=== PATIENT | female | born 1945 | race Caucasian/White ===

== ENCOUNTER → 2019-09-23 12:08 | Outpatient (BNVA) | payer MEDICARE, SELFPAY | PROVIDERS: Family Provider Nurse Practitioner Family; PCP Family Medicine; Referring Provider Nurse Practitioner Family; Visit Provider Anesthesiology Pain Medicine | DX: M48.02 Spinal stenosis, cervical region (principal); M50.020 Cervical disc disorder with myelopathy, mid-cervical region, unspecified level; M54.12 Radiculopathy, cervical region; R93.7 Abnormal findings on diagnostic imaging of other parts of musculoskeletal system; F17.210 Nicotine dependence, cigarettes, uncomplicated | CPT/HCPCS: 99204 ==

== ENCOUNTER 2019-10-02 08:28 | Outpatient (CLI) | payer MEDICARE, SELFPAY ==
--- NOTE | 2019-10-02 08:43 | MR_ITS ---
WS: [id number] MRI RIGHT humerus, noncontrast. HISTORY: Pain in RIGHT arm. No trauma. No history of cancer. Multiplanar, multisequence imaging is performed of the RIGHT humerus. Marker is placed along the palpable mass. This palpable area is in the distal third of the humerus. N o marrow signal abnormalities. There is no edema in the muscles or soft tissues. No soft tissue mass. No fluid. No muscle loss. No hematoma. There is a small effusion at the shoulder joint. MR/MR humerus RT wo con* [id number] IMPRESSION: Negative RIGHT humerus. No mass or hematoma.
[2019-10-02 10:48] LABS: Blood Urea Nitrogen 6 mg/dL (8-23)
== END 2019-10-02 08:29 | disposition home or self-care (01) ==
PROVIDERS: Family Provider Nurse Practitioner Family; PCP Family Medicine; Visit Provider Nurse Practitioner Family
DX: M79.81 Nontraumatic hematoma of soft tissue (principal)
CPT/HCPCS: 73218; 82565; 84520

== ENCOUNTER 2019-10-02 08:31 | Outpatient (CLI) | payer MEDICARE, SELFPAY ==
--- NOTE | 2019-10-02 09:30 | MR_ITS ---
WS: [id number] MRI CERVICAL SPINE with and without contrast HISTORY: Abnormal MRI cervical spine 09/02/2019 done at [facility]. COMPARISON: 06/25/2010. Recent MRI is not available from [facility] for review. Slight increase in cervical lordosis. There is some very slight signal abnormality in the cervical co rd at the C6-7 level. No definite enhancement. No atrophy of the cord. Craniocervical junction, C1 and C2 relationship, odontoid process and soft tissues are normal. C2-C3: Shallow central disc protrusion. No stenosis. C3-C4: Mild annular disc bulging and a central disc protrusion without stenosis. C4-C5: Mild annular disc bulging and osteophytic ridging. Mild central stenosis with moderate bilater al foraminal stenosis due to osteophyte disease. C5-C6: Annular disc bulging with disc osteophyte complexes and the foramen. Moderate to severe bilate ral foraminal stenosis. C6-C7: Diffuse annular disc bulging. Small central disc protrusion with moderate to severe bilateral foraminal stenosis. C7-T1: Mild osteophytic ridging and mild RIGHT foraminal stenosis. Postcontrast imaging is negative for abnormal enhancement. There is poor fat saturation in the mid to lower cervical spine. No enhancement along the dura. There is a small amount of edema or fluid adjacent to the LEFT lateral thoracic cord at the level of the nerve roots. May be a small amount of edema or neuritis. No enhancement. MR/MR cervical spine wo/w [id number] IMPRESSION: 1. Mild increased T2 signal in the cervical cord at the C6-7 level without enh ancement. May be due to mild myelomalacia and edema related to stenosis. 2. Multilevel osteophytic ridging around the vertebral bodies and disc disease resulting in stenoses. 3. Moderate to severe bilateral foraminal stenosis at C5-6 and C6-7. 4. Mild central and moderate bilateral foraminal stenosis at C4-5. 5. No enhancing masses identified. 6. Small amount of fluid adjacent to the RIGHT lateral cervical cord may be se condary to neuritis or posttraumatic. No associated mass or enhancement.
--- NOTE | 2019-10-02 10:15 | XR_ITS ---
WS: [id number] LATERAL CERVICAL SPINE: 3 view. Lateral radiographs are performed in upright neutral, flexion and extension to the patient's toleranc e. HISTORY: Neck pain COMPARISON: None available. Mild straightening of the normal cervical lordosis. Small endplate osteophytes. Disc spaces are well preserved. With flexion and extension there is no instability. No fracture. No soft tissue abnormalit y. XR/XR cervical spine fl/ex [id number] IMPRESSION: 1. No cervical spine instability. 2. Mild spondylosis.
== END 2019-10-02 08:32 | disposition home or self-care (01) ==
LOC: RADWPI 08:34
PROVIDERS: Family Provider Nurse Practitioner Family; PCP Family Medicine; Visit Provider Licensed Practical Nurse
DX: M47.812 Spondylosis without myelopathy or radiculopathy, cervical region (principal); M50.30 Other cervical disc degeneration, unspecified cervical region; M48.02 Spinal stenosis, cervical region
CPT/HCPCS: 72040; 72156; A9579

== ENCOUNTER → 2019-10-09 13:23 | Outpatient (BNVA) | payer MEDICARE, SELFPAY | PROVIDERS: Family Provider Nurse Practitioner Family; PCP Family Medicine; Visit Provider Anesthesiology Pain Medicine | DX: M50.020 Cervical disc disorder with myelopathy, mid-cervical region, unspecified level (principal); F17.210 Nicotine dependence, cigarettes, uncomplicated; Z79.891 Long term (current) use of opiate analgesic | CPT/HCPCS: 62321; J1100; J2001 ==

== ENCOUNTER → 2019-11-01 10:41 | Outpatient (BNVA) | payer MEDICARE, SELFPAY | PROVIDERS: Family Provider Nurse Practitioner Family; PCP Family Medicine; Visit Provider Anesthesiology Pain Medicine | DX: M48.02 Spinal stenosis, cervical region (principal); M50.020 Cervical disc disorder with myelopathy, mid-cervical region, unspecified level; M54.12 Radiculopathy, cervical region; R93.7 Abnormal findings on diagnostic imaging of other parts of musculoskeletal system; F17.210 Nicotine dependence, cigarettes, uncomplicated | CPT/HCPCS: 99213; 99214 ==

== ENCOUNTER → 2019-12-23 09:21 | Outpatient (BNVA) | payer MEDICARE, SELFPAY | PROVIDERS: Family Provider Nurse Practitioner Family; PCP Family Medicine; Visit Provider Anesthesiology Pain Medicine | DX: M50.020 Cervical disc disorder with myelopathy, mid-cervical region, unspecified level (principal); M48.02 Spinal stenosis, cervical region; M54.12 Radiculopathy, cervical region; R93.7 Abnormal findings on diagnostic imaging of other parts of musculoskeletal system; F17.210 Nicotine dependence, cigarettes, uncomplicated | CPT/HCPCS: 99213 ==

== ENCOUNTER → 2020-01-03 13:10 | Outpatient (BNVA) | payer MEDICARE, SELFPAY | PROVIDERS: Family Provider Nurse Practitioner Family; PCP Family Medicine; Visit Provider Anesthesiology Pain Medicine | DX: M50.020 Cervical disc disorder with myelopathy, mid-cervical region, unspecified level (principal); F17.210 Nicotine dependence, cigarettes, uncomplicated | CPT/HCPCS: 62321; J1100 ==

== ENCOUNTER → 2020-01-20 12:33 | Outpatient (BNVA) | payer MEDICARE, SELFPAY | PROVIDERS: Family Provider Nurse Practitioner Family; PCP Family Medicine; Visit Provider Anesthesiology Pain Medicine | DX: M48.02 Spinal stenosis, cervical region (principal); M54.12 Radiculopathy, cervical region; G99.2 Myelopathy in diseases classified elsewhere; M19.90 Unspecified osteoarthritis, unspecified site; F17.210 Nicotine dependence, cigarettes, uncomplicated | CPT/HCPCS: 62321; 99213; J1100 ==

== ENCOUNTER → 2020-01-31 09:02 | Outpatient (BNVA) | payer MEDICARE, SELFPAY | PROVIDERS: Family Provider Nurse Practitioner Family; PCP Family Medicine; Visit Provider Anesthesiology Pain Medicine | DX: M48.02 Spinal stenosis, cervical region (principal); M50.020 Cervical disc disorder with myelopathy, mid-cervical region, unspecified level; M54.12 Radiculopathy, cervical region; M79.601 Pain in right arm; R93.7 Abnormal findings on diagnostic imaging of other parts of musculoskeletal system; F17.210 Nicotine dependence, cigarettes, uncomplicated | CPT/HCPCS: 99213 ==

== ENCOUNTER 2020-12-07 12:40 | Emergency (ER) | payer MEDICARE, SELFPAY ==
[2020-12-07 12:55] VITALS: BP 127/77; PULSE 100; RESP 18; TEMP 37; O2SAT 93; BMI 25.0
--- NOTE | 2020-12-07 14:41 | XRR_ITS ---
PROCEDURE INFORMATION: Exam: XR Chest Exam date and time: 12/07/2020 4:42 PM Age: 75 years old Clinical indication: Cough and shortness of breath; Patient HX: Covid +, weak, low o2, SOB TECHNIQUE: Imaging protocol: XR of the chest. Views: 1 view. COMPARISON: MR cervical spine wo/w [id number] 10/02/2019 10:21 AM FINDINGS: Lungs: Hyperinflated lungs. Mild left pleural effusion. Pleural spaces: See Lungs finding. Heart/Mediastinum: Unremarkable. No cardiomegaly. Bones/joints: Unremarkable. XR/XR chest 1V portable [id number] IMPRESSION: 1. Hyperinflated lungs which could reflect obstructive lung disease in the appropriate clinical context. 2. Mild volume left pleural effusion.
--- NOTE | 2020-12-07 14:41 | W.ED.WEAKNES ---
HPI - Weakness General: Chief complaint: Weakness Stated complaint: Covid +, weak, low O2, SOB Time Seen by Provider: 12/07/20 17:48 Source: patient Mode of arrival: ambulatory Limitations: no limitations History of Present Illness: HPI Narrative: Patient is a 75-year-old female who tested positive for Covid about 2 weeks ago. She is unable to tell me when her symptoms actually started. She presents today due to continued fever, shortness of breath, weakness. States that her oxygen saturation has been staying around 9192% on room air at home. She is here to be evaluated because she just does not feel well. Complaint: generalized weakness Onset (ago): week(s) (2) Duration: constant Location: generalized Migration: none Relieving factors: none Exacerbating factors: none Context: recent illness Associated symptoms: Denies chest pain, chills, confusion, melena, decreased appetite, diaphoresis, dysuria, easy bruising, fever(s), headache(s), myalgias, nausea, rash, short of breath, syncope or vomiting Review of Systems General: Reports: 10 or more systems reviewed and unremarkable except in HPI and below Const: Denies: fever(s), chills or diaphoresis Card: Denies: chest pain or syncope GI: Denies: nausea, vomiting or melena : Denies: dysuria Neuro: Denies: headache(s) or confusion Antonio/Lymph: Denies: easy bruising PFS ED PFSH: Medical History (Reviewed 12/07/20 @ 21:44 by Michelle Crespo MD, [facility] [place]) Cervical disc disorder with myelopathy of mid-cervical region Diabetes mellitus Hematoma of arm RUE Hypertension Hypothyroidism Stenosis of cervical spine with myelopathy Surgical History (Reviewed 12/07/20 @ 21:44 by Michelle Crespo MD, [facility] [place]) History of hysterectomy History of knee joint replacement Family History Mother Diabetes Hypertension Stroke Sister Diabetes Grandmother Hypertension Social History (Reviewed 12/07/20 @ 21:44 by Michelle Crespo MD, [facility] [place]) Smoking and tobacco status: current every day smoker Alcohol intake: never Household members: children Marital status: Current occupational status: disabled History of recent travel: No Physical Exam Const: COMMON NORMALS: no acute distress, average body habitus, patient oriented x3, no limitations, healthy appearing, alert and well nourished HENMT: COMMON NORMALS: normocephalic, atraumatic and moist oral mucous membranes HEAD & SCALP: normocephalic and atraumatic Neck/C-Spine: COMMON NORMALS: no meningeal signs and no JVD Resp: COMMON NORMALS: normal respiratory effort, No retractions, No use of accessory muscles, clear to auscultation bilaterally and percussion normal AUSCULTATION: clear to auscultation bilaterally PERCUSSION: percussion normal Cardio: COMMON NORMALS: no JVD, regular rate, regular rhythm, S1 normal heart sound present, S2 normal heart sound present, No gallops present (Cardio), No clicks present (Cardio), No murmurs present (Cardio), No rub (Cardio) and Peripheral pulses 2+ throughout RATE: regular rate RHYTHM: regular rhythm HEART SOUNDS: S1 normal heart sound present and S2 normal heart sound present PERIPHERAL PULSES: Peripheral pulses 2+ throughout GI: COMMON NORMALS: Normal to inspection, nondistended, normoactive bowel sounds present, Soft to palpation, non-tender, No hepatosplenomegaly present, no masses and no bruits PALPATION: Yes Soft to palpation and Yes No hepatosplenomegaly present Extremity: COMMON NORMALS: normal to inspection, full ROM, capillary refill normal, no calf tenderness and no pedal edema Neuro: COMMON NORMALS: patient oriented x3 SENSORIUM/ORIENTATION: Yes alert MENINGEAL SIGNS: Yes no meningeal signs Skin: COMMON NORMALS: no rashes or lesions noted, no wounds, turgor normal, no jaundice, no petechiae and no mottling GENERAL SKIN EXAM: no rashes or lesions noted and turgor normal Course Reevaluation(s): Reevaluation #1: Discussed her lab and imaging findings with her. Nothing concerning for complications of COVID-19. She has mild hyponatremia. Chest x-ray negative. She is saturating between 93 and 95% on room air. Advised that she does not meet admission criteria. She voiced understanding and is in agreement with the plan. Time: 20:34 Vital Signs: Vital signs: Vital Signs Temperature 98.4 F 12/07/20 21:34 Pulse Rate 96 12/07/20 21:34 Respiratory Rate 20 H 12/07/20 21:34 Blood Pressure 116/64 12/07/20 21:34 Pulse Oximetry 95 12/07/20 21:34 MDM - Weakness MDM Narrative: Medical decision making narrative: 75-year-old female patient who was diagnosed with COVID-19 about 2 weeks ago. She presents to the emergency department with continued weakness. Evaluation in the emergency department is unremarkable and no obvious indication for hospital admission. In any case there are no hospital beds in this facility and in most of the surrounding hospitals due to the high rate of Covid infection in this community. Chest x-ray is normal oxygen saturation between 93 and 95% on room air. She is discharged home with no new orders. Medical Records: Attestation: I reviewed the patient's medical records. Lab Data: Attestation: I reviewed the patient's lab results. Labs: Lab Results 12/07/20 12/07/20 12/07/20 Range/Units 17:05 17:05 17:05 WBC 10.5 H (4.0-10.0) 10^3/ uL RBC 4.73 (4.1-5.3) 10^6/u L Hgb 11.6 (11.5-15.3) g/dL Hct 36.4 L (37.0-47.0) % MCV 77.0 L (81-99) fL MCH 24.5 L (28.0-34.0) pg MCHC 31.9 (30.0-36.0) g/dL RDW 16.3 H (12.1-15.1) % Plt Count 397 (130-400) 10^3/c mm MPV 9.5 (7.4-10.4) fL Neut % (Auto) 79.0 % Lymph % (Auto) 12.5 % [place] % (Auto) 6.4 % Eos % (Auto) 1.1 % Baso % (Auto) 0.4 % Neut # (Auto) 8.28 H (1.8-7.7) 10^3/u L Lymph # (Auto) 1.3 (0.8-4.8) 10^3/u L [place] # (Auto) 0.7 (0.2-0.9) 10^3/u L Eos # (Auto) 0.1 (0.0-0.8) 10^3/u L Baso # (Auto) 0.0 (0.0-0.1) 10^3/u L Nucleated RBC % (a uto) 0 % Nucleated RBCs # 0.0 /100WBC ESR 68 H (0-15) mm/hr Sodium 123 L (136-145) mmol/L Potassium 3.8 (3.5-5.1) mmol/L Chloride 84 L (98-107) mmol/L Carbon Dioxide 27 (22-29) mmol/L Anion Gap 15.8 (5-19) BUN 7 L (8-23) mg/dL Creatinine 0.5 (0.5-0.9) mg/dL GFR Calculation Not Reportable Glucose 224 H (65-115) mg/dL Calculated Osmolal ity 261 L (285-295) mOsm/k g Calcium 8.7 (8.5-10.5) mg/dL Total Bilirubin 0.5 (0.15-1.2) mg/dL AST 24 (0-32) U/L ALT 26 (0-33) U/L Alkaline Phosphata se 94 (35-105) IU/L Lactate Dehydrogen ase 321 H (135-214) U/L C-Reactive Protein 48.1 H (0.0-4.9) mg/L Total Protein 7.0 (6.6-8.7) g/dL Albumin 3.6 (3.5-5.2) g/dL Globulin 3.4 (1.3-4.6) g/dL Imaging Data^: CXR: Attestation: I personally reviewed and interpreted this imaging study as follows: Radiologist's impression: [address] [id number] ReportSigned Patient: Gissel Oden #: [id number]: [id number]#:[id number]/Sex: 75 / FADM Date: 12/07/20Loc: ERRoom/Bed:Attending Dr: Ordering Provider/Ordering MD: Rosy Holt NP Date of Service: 12/07/20 Procedure(s): XR chest 1V portable [id number] Accession Number(s): [id number] Report Number: [id number] PROCEDURE INFORMATION: Exam: XR Chest Exam date and time: 12/07/2020 4:42 PM Age: 75 years old Clinical indication: Cough and shortness of breath; Patient HX: Covid +, weak, low o2, SOB TECHNIQUE: Imaging protocol: XR of the chest. Views: 1 view. COMPARISON: MR cervical spine wo/w [id number] 10/02/2019 10:21 AM FINDINGS: Lungs: Hyperinflated lungs. Mild left pleural effusion. Pleural spaces: See Lungs finding. Heart/Mediastinum: Unremarkable. No cardiomegaly. Bones/joints: Unremarkable. XR/XR chest 1V portable [id number] IMPRESSION: 1. Hyperinflated lungs which could reflect obstructive lung disease in the appropriate clinical context. 2. Mild volume left pleural effusion. Dictated By:Kurt Wood DOSigned By:Kurt Wood DOSigned Date/Time:12/07/20 1720DD/ 1718 EKG Data^: EKG 1: Attestation: I personally reviewed and interpreted this EKG as follows: EKG interpretation date: 12/07/20 EKG interpretation time: 18:55 Prior EKG tracings: not available for review Interpretation: Sinus rhythm. Heart rate 99 bpm. Normal axis. No ST changes. Discharge Plan Discharge Patient Disposition: Home Clinical Impression: COVID-19 Condition: Stable Prescriptions: Continued Trulicity 1.5 mg/0.5 mL pen injector 1.5 mg SUBCUT Q7D RF: 0 metformin 1,000 mg tablet 1,000 mg PO BID RF: 0 celecoxib [Celebrex] 200 mg capsule 200 mg PO BID RF: 0 omeprazole 20 mg capsule,delayed release(DR/EC) 20 mg PO DAILY RF: 0 gabapentin 800 mg tablet 800 mg PO TID RF: 0 ondansetron HCl [Zofran] 4 mg tablet 4 mg PO Q4H PRN (Reason: n/v) RF: 0 glimepiride 4 mg tablet 4 mg PO BID RF: 0 Januvia 100 mg tablet 100 mg PO DAILY RF: 0 docusate sodium 100 mg capsule 100 mg PO DAILY PRN (Reason: Constipation) RF: 0 lisinopril 30 mg tablet 30 mg PO DAILY RF: 0 diazepam 2 mg tablet 2 mg PO QID PRN (Reason: unknown) RF: 0 hydrocodone-acetaminophen 5-325 mg tablet 1 tab PO QID PRN (Reason: Pain) RF: 0 albuterol sulfate 2.5 mg /3 mL (0.083 %) solution for nebulization 2.5 mg INHALATION Q4H PRN (Reason: Shortness Of Breath) RF: 0 sodium chloride 0.9 % Solution 10 ml epidural ONCE Qty: 1 RF: 0 dexamethasone sodium phosphate 4 mg/mL solution 8 mg INTRA-BRADY ONCE Qty: 2 RF: 0 lidocaine (PF) 10 mg/mL (1 %) solution 10 mg SUBCUT ONCE Qty: 1 RF: 0 simvastatin 40 mg tablet 40 mg PO DAILY RF: 0 levothyroxine 125 mcg tablet 125 mcg PO DAILY RF: 0 loratadine 10 mg tablet 10 mg PO DAILY PRN (Reason: Allergy Symptoms) RF: 0 Discharge Orders: Discharge ED (Routine); Ordered 12/07/20 Ordered By: Michelle Crespo Referrals: Santiago Christensen [Primary Care Provider] - 1-3 days Discharge Diet: Usual diet Discharge Activity: Increase activity as tolerated Patient Instructions: Viral Syndrome (ED) Activity Restrictions/Additional Instructions: Return for any new or worsening symptoms. Follow-up with your primary care provider within 3 days. Your laboratory values are not too bad and your chest x-ray is clear. Your oxygen levels have remained above 90% throughout your ER stay. Continue to check your oxygen levels at home. Follow-up with your primary care provider within 3 days. Coding Level of Care Code ED Plant Physiologist for Jac Mcmillan
--- NOTE | 2020-12-07 14:43 | ECG_ITS ---
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 Measurements Intervals [place] Rate: 99 P: 53 NM: 146 QRS: 35 QRSD: 89 T: 46 QT: 344 QTc: 442 Interpretive Statements SINUS RHYTHM No previous ECG available for comparison Electronically Signed On 12-09-2020 0:29:10 CDT by Carrie Haynes M.D. [email or web address]
[2020-12-07 17:31] LABS: Basophils % 0.4 %; Eosinophils # 0.1 10^3/uL (0.0-0.8); Eosinophils % 1.1 %; Hematocrit 36.4 % (37.0-47.0); Hemoglobin 11.6 g/dL (11.5-15.3); Lymphocytes # 1.3 10^3/uL (0.8-4.8); Lymphocytes % 12.5 %; Mean Corpuscular HGB Conc 31.9 g/dL (30.0-36.0); Mean Corpuscular Hemoglobin 24.5 pg (28.0-34.0); Mean Platelet Volume 9.5 fL (7.4-10.4); Monocytes # 0.7 10^3/uL (0.2-0.9); Monocytes % 6.4 %; Neutrophils # 8.28 10^3/uL (1.8-7.7); Nucleated Red Blood Cells % 0 %; Platelet Count 397 10^3/cmm (130-400); Red Blood Count 4.73 10^6/uL (4.1-5.3); Red Cell Distribution Width 16.3 % (12.1-15.1); White Blood Count 10.5 10^3/uL (4.0-10.0)
[2020-12-07 17:47] LABS: Alanine Aminotransferase 26 U/L (0-33); Albumin Level 3.6 g/dL (3.5-5.2); Alkaline Phosphatase 94 IU/L (35-105); Anion Gap 15.8 (5-19); Aspartate Amino Transferase 24 U/L (0-32); Blood Urea Nitrogen 7 mg/dL (8-23); C Reactive Protein 48.1 mg/L (0.0-4.9); Calcium 8.7 mg/dL (8.5-10.5); Carbon Dioxide 27 mmol/L (22-29); Chloride 84 mmol/L (98-107); Globulin 3.4 g/dL (1.3-4.6); Glucose 224 mg/dL (65-115); Lactate Dehydrogenase 321 U/L (135-214); Osmolality Calculated 261 mOsm/kg (285-295); Potassium 3.8 mmol/L (3.5-5.1); Sodium 123 mmol/L (136-145); Total Bilirubin 0.5 mg/dL (0.15-1.2)
[2020-12-07 17:57] VITALS: BP 126/77; PULSE 104; O2SAT 93
[2020-12-07 18:15] LABS: Erythrocyte Sedimentation Rate 68 mm/hr (0-15)
[2020-12-07 19:17] VITALS: BP 124/77; RESP 20; O2SAT 94
--- NOTE | 2020-12-07 21:16 | PC.NURSE ---
after pt discharge, pt was being wheeled into waiting room when approached by pt's daughter. Pt's daughter extremely belligerent, using profane language with multiple staff members. Security called, pt refusing to allow staff to explain pt's condition and discharge instructions. Pt's daughter escorted by security to parking lot. Pt's daughter present to receive discharge instructions. Pt assisted to vehicle with staff assistance. Pt's daughter continued to use profane language as staff entered the building. , head charger, household refrigeration mechanic notified
[2020-12-07 21:34] VITALS: BP 116/64; PULSE 96; RESP 20; TEMP 36.9; O2SAT 95
== END 2020-12-07 21:00 | disposition home or self-care (01) ==
PROVIDERS: Registered Nurse; Emergency Provider Family Medicine; PCP Family Medicine
DX: U07.1 COVID-19 (principal); Z79.84 Long term (current) use of oral hypoglycemic drugs; E11.9 Type 2 diabetes mellitus without complications; I10 Essential (primary) hypertension; F17.210 Nicotine dependence, cigarettes, uncomplicated
CPT/HCPCS: 36415; 71045; 80053; 83615; 85025; 85651; 86140; 87040; 93005; 99283

== ENCOUNTER 2021-01-06 07:47 | Day surgery (SDC) | payer MEDICARE, SELFPAY ==
[2021-01-04 10:00] VITALS: BMI 23.3
--- NOTE | 2021-01-06 08:16 | P.ANESASSM_ITS ---
Pre-Anesthetic Assessment Pre-Anesthetic Assessment: Height/Weight: Height 1.68 m Weight 65.771 kg Proposed Procedure: Operation Date: 01/06/21 09:00 Proposed Procedures p EGD 96460 R11.2(Not Applicable) - Grant Maier MD s Colonoscopy 14983 R19.4(Not Applicable) - Grant Maier MD Was Beta Elpidio taken within 24 hours: N/A Was Clonidine taken within 24 hours: N/A Social: Social History: Tobacco and No alcohol Exam: Pre-Anes Outpt Exam: alert, oriented x 3, clear to auscultation bilaterally and regular rate & rhythm Airway: Submandibular: WNL Cervical ROM: WNL MP: 2 Dentition: Chipped Additional comments: Missing several Pulmonary: Pulmonary: COPD CV/HEM: CV/HEM: Afib GI: GI: GERD Metabolic: Metabolic: DM and Hyperlipidemia Musc/skel: Musc/skel: OA/DJD Neuropsych: Neuropsych: Anxiety Anesthetic Plan: ASA status: 3 Anesthesia: MAC Risk of > 500 ml blood loss (7ml/kg in children): No PFSH Anesthesia PFSH: Medical History (Reviewed 12/07/20 @ 21:44 by Michelle Crespo MD, [facility] [place]) Cervical disc disorder with myelopathy of mid-cervical region Diabetes mellitus Hematoma of arm RUE Hypertension Hypothyroidism Stenosis of cervical spine with myelopathy Surgical History (Reviewed 12/07/20 @ 21:44 by Michelle Crespo MD, [facility] [place]) History of hysterectomy History of knee joint replacement Family History (Reviewed 12/07/20 @ 21:44 by Michelle Crespo MD, [facility] [place]) Mother Diabetes Hypertension Stroke Sister Diabetes Grandmother Hypertension Social History (Reviewed 12/07/20 @ 21:44 by Michelle Crespo MD, [facility] [place]) Smoking and tobacco status: current every day smoker Alcohol intake: never Household members: children Marital status: Current occupational status: disabled History of recent travel: No Data Anesthesia Cardiac Studies: No Data to Display
[2021-01-06 08:52] VITALS: BP 173/98; PULSE 83; RESP 18; TEMP 35.9; O2SAT 98
[2021-01-06] MEDS: sodium chloride 0.9% 1,000 ML 30 ML IV (09:00)
[2021-01-06 09:05] LABS: Glucose Point of Care 83 mg/dL (70-110)
--- NOTE | 2021-01-06 09:27 | W.PM.OPSFHP ---
Same Day Surgery H&P Indication for Procedure/HPI DATE OF PROCEDURE: January 06, 2021 CHIEF COMPLAINT/INDICATIONFOR SURGICAL PROCEDURE: Nausea and change in bowel habit PREOP DIAGNOSIS: Persistent nausea and change in bowel habits PLANNED PROCEDRUE: Operation Date: 01/06/21 09:00 Proposed Procedures p EGD 07341 R11.2(Not Applicable) - Grant Maier MD s Colonoscopy 26712 R19.4(Not Applicable) - Grant Maier MD This is a pleasant 75 years old female patient presents to my practice with history of worsening nausea associated with acid reflux as she has been on proton pump inhibitors for many years but it seems if she is not taking her medicine her symptoms are worse. Another concern that the patient has been having alternating constipation and diarrhea, no evidence of blood in stool and last colonoscopy was done about 21 years ago back in 1999. Patient also reports history of fatty dyspepsia and upper abdominal discomfort associated with greasy diet. Patient comes today escorted by her daughter Interim history 01/06/2021 Patient comes today for diagnostic EGD and colonoscopy ROS All systems have been reviewed negative except as per the above or per problem list Medications/Allergies* Home Medications Medication Instructions Recorded Confirmed Type celecoxib 200 mg capsule 200 mg PO BID 08/02/19 01/06/21 History dulaglutide 1.5 mg/0.5 mL 1.5 mg SUBCUT Q7D 08/02/19 01/06/21 History subcutaneous pen injector gabapentin 800 mg tablet 800 mg PO TID 08/02/19 01/06/21 History metformin 1,000 mg tablet 1,000 mg PO BID 08/02/19 01/06/21 History omeprazole 20 mg capsule,delayed 20 mg PO DAILY 08/02/19 01/06/21 History release diazepam 2 mg tablet 2 mg PO QID PRN tab 09/23/19 01/06/21 History docusate sodium 100 mg capsule 100 mg PO DAILY PRN 09/23/19 01/06/21 History glimepiride 4 mg tablet 4 mg PO BID tab 09/23/19 01/06/21 History hydrocodone 5 mg-acetaminophen 325 1 tab PO QID PRN tab 09/23/19 01/06/21 History mg tablet lisinopril 30 mg tablet 30 mg PO DAILY 09/23/19 01/06/21 History ondansetron HCl 4 mg tablet 4 mg PO Q4H PRN tab 09/23/19 01/06/21 History sitagliptin 100 mg tablet 100 mg PO DAILY 09/23/19 01/06/21 History simvastatin 40 mg tablet 40 mg PO DAILY 10/10/19 01/06/21 History albuterol sulfate 2.5 mg INHALATION Q4H PRN 12/23/19 01/06/21 History levothyroxine 125 mcg PO DAILY 12/07/20 01/06/21 History loratadine 10 mg PO DAILY PRN 12/07/20 01/06/21 History Allergies/Adverse Reactions Allergy/AdvReac Type Severity Reaction Status Date / Time No Known Allergies Allergy Verified 11/21/20 15:56 Current Medications: Generic Name Dose Route Start Last Admin Trade Name Freq PRN Reason Stop Dose Admin Sodium Chloride 1,000 mls @ 30 mls/hr 01/06/21 08:30 01/06/21 09:00 Sodium Chloride 0.9% IV 01/07/21 08:29 30 mls/hr .Q24H NARESH Administration Pertinent History/Comorbid Conditions* Medical History (Updated 12/07/20 @ 20:34 by Michelle Crespo MD, [facility] [place]) Cervical disc disorder with myelopathy of mid-cervical region Diabetes mellitus Hematoma of arm RUE Hypertension Hypothyroidism Stenosis of cervical spine with myelopathy Surgical History (Updated 08/02/19 @ 16:13 by Anton Samano MD) History of hysterectomy History of knee joint replacement Family History (Updated 09/16/19 @ 09:08 by Cely Bradley LPN) Diabetes Mother Sister Hypertension Mother Grandmother Stroke Mother Social History Smoking and tobacco status: current every day smoker Alcohol intake: never Household members: children Marital status: Current occupational status: disabled History of recent travel: No Pertinent Exam Findings alert, oriented x 3, clear to auscultation bilaterally, regular rate & rhythm and procedure specific exam findings (Abdominal examination nontender nondistended soft) Recommendations Surgery/Procedure today (EGD and colonoscopy) Other Plans: Plan of care; After thorough history and physical examination and reviewing the chart, plan to perform a diagnostic esophagogastroduodenoscopy and diagnostic colonoscopy with possible biopsy and possible polypectomy. I discussed with the patient in detail the risks,benefits,alternatives and indications.The risk of aspiration, bleeding, soft tissue injury, perforation of the stomach/esophagus/colon and other potential concomitant complications were explained to the patient in details also the potential need for Thoracotomy and or Laproscoy/Laparotomy to repair any related complications including but not limited to colectomy and or Closotomy. The patient understood this well and did agree to proceed. Rationale was carefully and clearly discussed with the patient.Appropriate informed consent have been reviewed and signed Verbal and written Instructions were given to the patient for colonoscopy prep Coding Level of Care Code Acute Data Technical Lead for Jac Mcmillan
[2021-01-06 10:11] VITALS: BP 131/76; PULSE 84; RESP 16; TEMP 36.1; O2SAT 100
[2021-01-06 10:21] VITALS: BP 134/66; PULSE 84; RESP 18; O2SAT 98
--- NOTE | 2021-01-06 14:32 | ANE.PACU2 ---
Inpatient post-anesthesia follow up: Airway intact: Yes Vital signs: Temperature 97.0 F Pulse Rate 84 Respiratory Rate 18 Blood Pressure 134/66 Pulse Oximetry 98 Oxygen Delivery Me thod Room Air Oxygen Flow Rate 4 Fraction of Inspir ed Oxygen Hydration adequate: Yes Nausea and vomiting: No Pain level: 1 Mental status: Baseline
[2021-01-07 06:33] LABS: H. Pylori / CLO Test Negative
== END 2021-01-06 10:34 | disposition home or self-care (01) ==
PROVIDERS: PCP Family Medicine; Visit Provider Surgery
PROC: 0DJ08ZZ Inspection of Upper Intestinal Tract, Via Natural or Artificial Opening Endoscopic (ICD-10-PCS; CPT 43235; principal; 2021-01-06 09:00)
PROC: 0DJD8ZZ Inspection of Lower Intestinal Tract, Via Natural or Artificial Opening Endoscopic (ICD-10-PCS; CPT 45378; 2021-01-06 09:00)
DX: R19.4 Change in bowel habit (principal); R11.2 Nausea with vomiting, unspecified; K29.70 Gastritis, unspecified, without bleeding; K21.00 Gastro-esophageal reflux disease with esophagitis, without bleeding; E11.9 Type 2 diabetes mellitus without complications; I10 Essential (primary) hypertension; E03.9 Hypothyroidism, unspecified; Z83.3 Family history of diabetes mellitus; Z82.49 Family history of ischemic heart disease and other diseases of the circulatory system; Z82.3 Family history of stroke; F17.210 Nicotine dependence, cigarettes, uncomplicated; K57.30 Diverticulosis of large intestine without perforation or abscess without bleeding; J44.9 Chronic obstructive pulmonary disease, unspecified; I48.91 Unspecified atrial fibrillation; E78.5 Hyperlipidemia, unspecified
CPT/HCPCS: 36416; 43239; 45378; 82962; 87077; 96360; J2704; J7030